=== PATIENT | male | born 2000 | race Two or more races ===

== ENCOUNTER 2025-08-24 21:57 | Emergency (ER) | payer SELFPAY ==
[2025-08-24 21:58] VITALS: BMI 26.4
[2025-08-24 22:34] VITALS: BP 129/84; PULSE 74; RESP 16; TEMP 36.7; O2SAT 98
--- NOTE | 2025-08-24 22:36 | XR_ITS ---
Examination: Hand, right 3 views Technique: Hand AP, oblique, lateral 3 views Date and time of exam: August 24, 2025, 1033 hours INDICATIONS: Patient punched a wall today with injury to the hand, hand pain. FINDINGS: Acute mildly impacted fractures distal fourth metacarpal No foreign body No dislocation IMPRESSION: Acute impacted fractures distal fourth metacarpal
[2025-08-24] MEDS: HYDROcodone/APAP 5/325 TABLET 1 TAB PO (23:38)
--- NOTE | 2025-11-29 06:23 | PD.EDUPEX ---
Upper Extremity Injury RME/HPI General Chief Complaint: Extremity Injury, Upper Stated Complaint: RIGHT HAND INJURY Time Seen by Provider: 08/24/25 21:59 Arrival date/time: 08/24/25 21:57 This is a case of 25-year-old male with no medical history came in in the emergency room due to right pain and swelling patient accidentally hit his right hand Limitations: no limitations Related Data Previous Rx's ?Medication ?Instructions ?Recorded ibuprofen 800 mg tablet 800 mg PO Q8H PRN pain #20 tabs 08/24/25 Allergies Allergy/AdvReac Type Severity Reaction Status Date / Time No Known Allergies Allergy Verified 07/20/18 22:04 Review of Systems Review of Systems Systems Reviewed: All systems reviewed, normal except as documented Past Medical History Past Medical History CARDIAC: Negative Congestive Heart Failure RESPIRATORY: Negative Chronic Obstructive Pulmonary Disease (COPD) GENITOURINARY: Negative Renal Disease ENDOCRINE: Negative Diabetes Mellitus Type 1 or Diabetes Mellitus Type 2 Social History SMOKING STATUS: Never smoker ED Exam General Limitations: Present no limitations General appearance: Present alert and in no apparent distress Head Head exam: Present atraumatic Eye Eye exam: Present normal appearance, PERRL and EOMI ENT ENT exam: Present normal exam, normal oropharynx and mucous membranes moist Neck Neck exam: Present normal inspection, full ROM and trachea midline Chest Chest inspection: Present normal inspection and symmetric chest wall rise Respiratory Respiratory exam: Present normal lung sounds bilaterally Cardiovascular Cardiovascular exam: Present regular rate, normal rhythm and normal heart sounds Abdominal Exam Abdominal exam: Present soft and normal bowel sounds Extremities Exam Extremities exam: Present normal inspection and full ROM Expanded Upper Extremity Exam Forearm/Wrist exam: Present normal inspection and full ROM; Absent tenderness, swelling, abrasion, laceration, ecchymosis, deformity, crepitus, dislocation, erythema, tenderness over anatomical snuff box or pain with axial thumb loading Hand exam: Present tenderness, swelling and other (Did moderate tenderness on the dorsal aspect of the right hand with swelling crepitation no deformity ROM pulses are full and equal capillary refill less than 2 seconds sensory is intact no snuffbox tenderness); Absent abrasion, laceration, skin avulsion, ecchymosis, deformity, crepitus, dislocation, erythema, amputation, nail avulsion or subungual hematoma Back Exam Back exam: Present normal inspection and full ROM Neurological Exam Neurological exam: Present alert, oriented X3 and CN II-XII intact Psychiatric Psychiatric exam: Present normal affect and normal mood Skin Skin exam: Present warm, dry, intact and normal color Course Quality Measures none Orders Category Date Time Status Splint / Immobilizer STAT Care 08/24/25 23:23 Completed XR hand RT 2V Stat Exams 08/24/25 22:36 Completed HYDROcodone*/APAP 5/325 [[place] 5/325] Med 08/24/25 23:23 Discontinued 1 tab PO X1 ONE Vital Signs Vital signs: Vital Signs Temperature 98.1 F 08/24/25 22:34 Pulse Rate 74 08/24/25 22:34 Respiratory Rate 16 08/24/25 22:34 Blood Pressure 129/84 08/24/25 22:34 Pulse Oximetry (%) 98 08/24/25 22:34 Oxygen Delivery Method Room Air 08/24/25 22:34 vuital signs stable Extremity Injury MDM Narrative MDM Narrative:: Patient was discharged with comfortable condition walking with stable gait. Patient verbalized no further complains explained diagnosis and answered patient question. Patient is comfortable with the proposed management plan including the need to follow up with his/her primary care physician and any specialist if applicable Discussed patient for any urgent condition or worsening sx, He/She needed to go to emergency room immediately or call 911. Patient acknowledge the responsibility to follow up as instructed and to monitor her/his symptoms. For any persistence of the symptoms for more than 3-5 days return precaution advised. Discussed the result of the test and was given printed discharge instruction Patient data External records reviewed:: [facility] previous records Clinical information provided by:: patient Social determinants that could affect healthcare access:: none Patient has the following chronic illnesses:: none How is presenting disease/condition affected by chronic disease/condition?: no chronic disease Evaluation data The following diagnostics were reviewed and interpreted by me:: radiology exam(s) Lab and/or radiology exams considered but not ordered:: [email or web address] Interpretation Summary: reviewed Medications / Prescriptions Medications or Prescriptions considered but not ordered:: none Medication administrations:: Medication Administration History Discontinued Medications Hydrocodone Bitart/Acetaminophen (Hydrocodone/[place] 5/325 Tablet) 1 tab PO X1 ONE Stop: 08/24/25 23:24 Last Admin: 08/24/25 23:38 Dose: 1 tab Documented By: BD none Consultations Consultation(s) initiated? (list below): No Diagnosis Upper Extremity Injury Differential Diagnosis: fracture of hand Most likely diagnosis given after review of the tests above:: metacarpal fractyure Admission Indicated Admission indicated?: not indicated Explain why admission is indicated or not indicated:: not indicated Admission Request Was there a request for admission?: No Admission Attestation Admission request attestation: noned Disposition Plan Disposition Plan: Discharge Discharge Attestation Discharge Attestation: The patient and all family members were given an opportunity to ask questions and understood the discharge instructions. Discharge instructions specifically effects, indications for sooner follow up or return to the emergency department, and the expected course of current diagnosis. Patient condition: Stable Discharge Plan Plan Patient Disposition: HOME (Self Care) Prescriptions/Referrals Prescriptions/Med Rec: New ibuprofen 800 mg tablet 800 mg PO Q8H PRN (Reason: pain) Qty: 20 0RF Referrals: Rj Thakkar PA-C [Primary Care Provider] - In 1 week Problem List Clinical Impression: Closed fracture of fourth metacarpal bone of right hand Patient/Caregiver Discharge Instructions Education Materials: ED Closed Hand Fracture (Adult), ED Splint Care, Fiberglass, ED RICE Additional Instructions: Follow-up with your primary care physician in 2 days for reevaluation and to be referred to orthopedic surgeon for further evaluation and treatment of fourth metacarpal fracture right hand worsening symptoms or any emergent concerns such as numbness weakness tingling sensation and swelling return to the emergency room immediately or call 911 ice pack every 2 hours for 20 minutes for 24 hours then alternate with warm compress elevate to decrease swelling keep the splint and sling in place until cleared by your primary care physician take Tylenol Motrin as needed for pain Print Language: Swedish Stand Alone Forms: Meeta Award Info., Work/School Release, Patient Portal Info Letter PA/STACY Supervising Physician PA/STACY Supervising Physician: Dr. Fox
== END 2025-08-24 23:42 | disposition home or self-care (01) ==
PROVIDERS: Emergency Provider Emergency Medicine; PCP Physician Assistant Medical
DX: S62.304A Unspecified fracture of fourth metacarpal bone, right hand, initial encounter for closed fracture (principal); W19.XXXA Unspecified fall, initial encounter
CPT/HCPCS: 29125; 73120; 99282; A9270